=== PATIENT | female | born 1965 | race Caucasian/White ===

== ENCOUNTER 2024-11-20 13:54 | Emergency (ER) | payer BC, OTHER ==
[2024-11-20 14:04] VITALS: BMI 24.0
[2024-11-20 15:28] LABS: BASO % 0.5 % (0-2.0); EOS % 0.4 % (0-4.5); HEMATOCRIT 44.2 % (32.4-45.2); HEMOGLOBIN 15.1 GM/dL (10.7-15.3); LYMPH % 23.3 % (8-40); MCH 29.7 pg (25.7-33.7); MCHC 34.1 g/dl (32.0-36.0); MEAN CELL VOLUME 87.1 fl (80-96); MEAN PLT VOLUME 8.1 fl (7.5-11.1); MONO % 5.1 % (3.8-10.2); NEUT % 70.7 % (42.8-82.8); PLATELET COUNT 346 10^3/uL (134-434); RBC 5.08 M/mm3 (3.60-5.2); RDW 13.1 % (11.6-15.6); WHITE BLOOD COUNT 8.9 K/mm3 (4.0-10.0)
[2024-11-20 15:46] LABS: POTASSIUM 3.5 mmol/L (3.5-5.1)
[2024-11-20 15:48] LABS: ALBUMIN 3.7 g/dl (3.4-5.0); BLOOD UREA NITROGEN 13.8 mg/dL (7-18); CALCIUM 9.2 mg/dL (8.5-10.1); MAGNESIUM 1.8 mg/dL (1.8-2.4)
[2024-11-20 15:51] LABS: CREATININE 0.5 mg/dL (0.55-1.3)
[2024-11-20 15:53] LABS: BILIRUBIN,TOTAL 0.6 mg/dL (0.2-1)
[2024-11-20 15:54] LABS: TOT PROT 8.2 g/dl (6.4-8.2)
[2024-11-20] MEDS ORDERED: ACETAMINOPHEN INJECTION 100 ML ONE (17:19)
[2024-11-20 17:25] VITALS: RESP 17
[2024-11-20] MEDS: SODIUM CHLORIDE 0.9% 500 ML INFUS.BAG IV ONE (17:57)
[2024-11-20] MEDS: ACETAMINOPHEN 1000 MG/100 ML BAG IVPB ONE (17:57)
[2024-11-20 19:21] VITALS: BP 144/73; PULSE 88; TEMP 98.1
== END 2024-11-20 19:23 | disposition home or self-care (01) ==
LOC: JER 13:54
PROC: 3E033NZ Introduction of Analgesics, Hypnotics, Sedatives into Peripheral Vein, Percutaneous Approach (ICD-10-PCS; principal; 2024-11-20)
DX: R07.2 Precordial pain (principal); R51.9 Headache, unspecified; R11.0 Nausea; B97.4 Respiratory syncytial virus as the cause of diseases classified elsewhere; R05.9 Cough, unspecified; Z20.822 Contact with and (suspected) exposure to COVID-19
CPT/HCPCS: 0241U-QW; 36415; 71046-TC-FY; 80053; 83735; 84484; 85025; 93005; 93010; 99285-25; J0131